=== PATIENT | female | born 1970 | race Caucasian/White ===

== ENCOUNTER 2022-11-05 19:34 | Emergency (ER) | payer OTHER, SELFPAY ==
[2022-11-05 19:35] VITALS: BP 124/88; PULSE 89; RESP 16; TEMP 36.6; O2SAT 97; BMI 40.7
--- NOTE | 2022-11-05 19:51 | EKG12_ITS ---
Test Reason : CP Blood Pressure : / mmHG Vent. Rate : 081 BPM Atrial Rate : 081 BPM P-R Int : 158 ms QRS Dur : 094 ms QT Int : 372 ms P-R-T Axes : 037 -35 038 degrees QTc Int : 432 ms Normal sinus rhythm Left axis deviation Moderate voltage criteria for LVH, may be normal variant ( R in aVL , Linwood product ) Septal infarct , age undetermined Abnormal ECG Confirmed by XANDER HERNANDEZ, SAHIL ([id number]), digital editor JAQUAN HAGAN ([id number]) on 11/07/2022 10:49:26 AM Referred By: PL Confirmed By:SAHIL TERRELL MD
--- NOTE | 2022-11-05 19:52 | EDS_ITS ---
HPI History of Present Illness Chief Complaint: Chest Pain Informant: patient and spouse/S.O. Narrative Narrative: Presents with concern regarding chest pain. Patient states that 1 week ago she started with decreased energy. She states she is sleeping a lot. This started last Monday. She then developed some nausea and sweats and fever over the next day or 2. She never vomited. No diarrhea. She still has her appetite. She is also had myalgias. She had some headaches but those are getting better. The last 2 days now she has been coughing but not having sputum production. She has soreness across her chest that is exacerbated with coughing. This has been constant for the last at least 24 hours if not longer. Its not pleuritic. There is no hemoptysis. She has no travel surgery immobilization personal or family history of DVT or PE. Patient states that she has had angina for years. This goes back to when she was about 32 years old. She had an episode of chest pain. She had a heart catheterization that showed no blockage and no stents have ever been placed. She states she has had angina since but she is not on any medicines for this. She does have a family history of heart disease. Her father had bypass surgery at about 52. She is a non-smoker. She is on medication for high blood pressure. She has never had diabetes. She may have had high cholesterol but is not on meds for that. [facility] Medical History Aortic stenosis Mitral valve prolapse Home Medications albuterol sulfate 90 mcg/actuation aerosol inhaler 1 inh inhalation Q6H PRN breathing 11/05/22 [History Last Taken Unknown] amlodipine 10 mg tablet 10 mg PO DAILY 11/05/22 [History Last Taken 11/04/22] diclofenac sodium 75 mg tablet,delayed release 75 mg PO BID 11/05/22 [History Last Taken Unknown] duloxetine 60 mg capsule,delayed release 90 mg PO DAILY 11/05/22 [History Last Taken 11/04/22] lisinopril 20 mg-hydrochlorothiazide 25 mg tablet 1 tab PO QHS 11/05/22 [History Last Taken 11/05/22] omeprazole 20 mg capsule,delayed release 20 mg PO DAILY 11/05/22 [History Last Taken Unknown] Allergy/AdvReac Type Severity Reaction Status Date / Time cat dander [cats] Allergy Anaphylaxis Verified 11/05/22 19:38 Social History Smoking Status: Never smoker ROS ROS ED Constitutional Constitutional ED: Reports chills, fever(s), subjective and sweats Eyes Eyes: Denies change in vision or diplopia ENT ENT ED: Reports rhinorrhea; Denies sore throat Cardiovascular Cardiovascular: Reports chest pain; Denies palpitations or racing heartbeat Respiratory/Chest Respiratory/Chest: Reports cough and dyspnea; Denies sputum Gastrointestinal Gastrointestinal: Reports nausea; Denies abdominal pain, diarrhea or vomiting Genitourinary Genitourinary ED: Denies dysuria Musculoskeletal Musculoskeletal: Reports myalgias Integumentary Denies rash Neurologic Neurologic: Reports headache(s); Denies paresthesias or weakness Psychiatric Psychiatric: Denies anxiety Endocrine Endocrinology: Denies polydipsia or polyuria Hematologic/Lymphatic Hematologic/Lymphatic: Denies easy bleeding, easy bruising or lymphadenopathy Allergic/Immunologic Allergic/Immunologic ED: Denies urticaria EXAM Physical Exam Const Vital Signs: 11/05/22 19:35 11/05/22 19:56 11/05/22 20:07 Temperature 97.8 F Temperature Source Temporal Pulse Rate 89 90 Respiratory Rate 16 18 Respiratory Effort Normal Blood Pressure 124/88 H Blood Pressure Mean 100 Pulse Ox 97 Oxygen Delivery Method Room Air 11/05/22 21:05 11/05/22 22:00 Temperature 98.8 F Temperature Source Oral Pulse Rate 82 77 Respiratory Rate 16 15 Respiratory Effort Blood Pressure 125/74 H 138/90 H Blood Pressure Mean 91 106 Pulse Ox 93 93 Oxygen Delivery Method Room Air Room Air Positive well nourished and well developed General Appearance ED: well developed and NAD; Negative for pallor HEENT Reports moist mucous membranes HEENT Narrative: Mucous membranes are still moist. No sinus tenderness. Eyes EOMs intact bilaterally General Eye ED: Negative for pale conjunctiva or scleral icterus Neck no lymphadenopathy and no JVD Neck Narrative: No JVD. Chest Wall inspection of chest normal and palpation of chest normal Chest Narrative: No notable chest tenderness Resp normal respiratory effort and clear to auscultation bilaterally Resp Narrative: Patient states she has heard intermittent wheezing but has no history of restrictive lung disease. I do not hear wheezing at this time. However, deep breaths do cause a cough on her. Cardio regular rate and no murmurs Rate: other Other Details: Heart is regular. She is not tachycardic. Peripheral pulses are normal and equal. No muffled heart tones. ; Negative for tachycardic GI normal to inspection, nondistended, normoactive bowel sounds and non-distended Back/Spine no CVA tenderness Extremity normal to inspection Extremity Narrative: No edema, cords, tenderness along deep venous system, distended veins or asymmetry. General Extremety ED: Negative for edema or tenderness General Extremity: Negative for edema Neuro oriented x3 Psych mental status grossly normal Skin no rashes or lesions noted, no wounds and skin turgor normal General Skin Exam: Negative for jaundice or pallor MDM MDM MDM Narrative Medical decision making narrative: My independent interpretation of her 2 view view chest x-ray shows no sign of infiltrate, pneumothorax, cardiomegaly or other acute process. Final reading by radiology also shows no acute radiographic abnormalities. CBC shows no acute process including normal white count. Electrolytes are normal. Despite more than a day of symptoms, her troponin is still quite low at 6. I do not think she needs a delta troponin. I checked with the patient again. She feels better with albuterol MDI. I talked to her about this. She does have this at home but does not have a spacer. I have talked with our respiratory therapist to her getting a spacer for her to use with the patient's own albuterol. She states she does not need another prescription. I do not think this patient requires antibiotics as there is no indication of bacterial infection. This is most likely viral and should resolve soon. However we did discuss reasons that would bring her back. I do not think her symptoms represent a PE. She has intermittent pain with coughing, she is not tachypneic tachycardic or hypoxic. She has no risk factor for PE. I do not think she needs CTA or D-dimer. Lab Data Attestation: I reviewed the patient's lab results. Labs: Laboratory Results - last 24 hr 11/05/22 11/05/22 19:50 19:50 WBC 5.8 RBC 4.69 Hgb 12.3 Hct 38.7 MCV 82.5 MCH 26.2 L MCHC 31.8 L RDW Std Deviation 41.6 RDW Coeff of Sylvia 13.9 Plt Count 261 MPV 8.8 Immature Gran % (Auto) 0.500 Neut % (Auto) 74.7 H Lymph % (Auto) 17.2 L Bullock % (Auto) 7.1 Eos % (Auto) 0.0 Baso % (Auto) 0.5 Absolute Neuts (auto) 4.3 Absolute Lymphs (auto) 1.00 Nucleated RBC % 0 Sodium 138 Potassium 3.5 Chloride 104 Carbon Dioxide 26.0 Anion Gap 8 BUN 13 Creatinine 0.95 Estim Creat Clear Calc 56.00 Est GFR (MDRD) Af Amer 79 Est GFR (MDRD) Non-Af 66 BUN/Creatinine Ratio 13.7 Glucose 108 H Calcium 9.3 Troponin I High Sens 6 Radiography Diagnostic Testing: Clinical Impression(s) from Imaging Studies Chest X-Ray 11/05/22 20:28 IMPRESSION: No acute radiographic abnormalities. Electronically Signed: Tyson Hernandez MD at 20:39 EST , EKG Initial EKG: Comments: My independent interpretation of the patient's EKG done for chest pain shows a normal sinus rhythm with overall rate of 81. Mild baseline variation but no sign of acute ST elevation or depression. Poor anterior R wave. Borderline LVH. CO interval, QRS duration and QTc are normal. I looked for but I am not able to find any prior EKGs on our system. Discharge Plan Triage Chief Complaint: Chest Pain ED Provider: Ra Dai Dx/Rx/DC Orders Clinical Impression: Viral URI with cough, Acute bronchospasm Instructions: ED URI, Viral, No Abx (Adult) Prescriptions: No Action amlodipine 10 mg tablet 10 mg PO DAILY omeprazole 20 mg Capsule,Delayed Release(Dr/Ec) 20 mg PO DAILY lisinopril-hydrochlorothiazide 20-25 mg tablet 1 tab PO QHS diclofenac sodium 75 mg tablet,delayed release (DR/EC) 75 mg PO BID Label Comments: TAKE 1 TABLET BY MOUTH TWICE A DAY FOR 30 DAYS albuterol sulfate 90 mcg/actuation Hfa Aerosol Inhaler 1 inh INHALATION Q6H PRN (Reason: breathing) duloxetine 60 mg capsule,delayed release(DR/EC) 90 mg PO DAILY Primary Care Provider: Rima Carey Referrals: Rima Carey MD [Primary Care Provider] - 3-5 Days Disposition Disposition: Home, Self Care
[2022-11-05 19:58] LABS: Absolute Neutrophil Count 4.3 X10^3/uL (2.0-7.7); Basophil# 0.03 X10^3/uL; Basophil% 0.5 % (0-1); Hematocrit 38.7 % (37-47); Hemoglobin 12.3 g/dL (12.0-15.0); Lymphocyte % 17.2 % (19-41); Mean Corp Hgb Conc 31.8 g/dL (32-36); Mean Corpuscular Hgb 26.2 pg (27.0-32.0); Mean Corpuscular Volume 82.5 fL (81-99); Mean Platelet Vol. 8.8 fl (6.2-12.0); Monocyte# 0.41 X10^3/uL; Monocyte% 7.1 % (0-10); NRBC Flagged by Analyzer 0 % (0-5); Neutrophil # 4.34 X10^3/uL (2.7-7.7); Neutrophil % 74.7 % (47-70); Platelet Count 261 K/mm3 (150-450); RBC Distribution Width CV 13.9 % (11.6-14.6); RBC Distribution Width SD 41.6 fl (35.1-43.9); Red Blood Count 4.69 M/mm3 (4.2-5.4); White Blood Count 5.8 K/mm3 (4.4-11.0)
[2022-11-05] MEDS: Ipratropium/Albuterol Sulfate 3 ML AMPUL.NEB INHALATION (20:00)
[2022-11-05 20:07] VITALS: PULSE 90; RESP 18
[2022-11-05 20:21] LABS: Anion Gap 8 (5-15); BUN 13 mg/dL (7-18); BUN/Creat Ratio 13.7 RATIO (10-20); Calcium,Total 9.3 mg/dL (8.5-10.1); Chloride 104 mmol/L (98-107); Creatinine, Serum 0.95 mg/dL (0.55-1.02); EST Glomerular Filtration Rate 66 mL/min (>60); Est Glom Filt Rate - Afr Amer 79 mL/min (>60); Glucose 108 mg/dL (74-106); Potassium 3.5 mmol/L (3.5-5.1); Sodium Level 138 mmol/L (136-145); Troponin-I HS 6 pg/mL (3.0-54.0)
--- NOTE | 2022-11-05 20:28 | RAD_ITS ---
INDICATION: cough EXAMINATION/TECHNIQUE: X-RAY - XR Chest 2 Views COMPARISON: None. FINDINGS: The lungs are clear. Tortuous and calcified thoracic aorta. The heart is not enlarged. No pleural effusion or pneumothorax. Degenerative changes of the thoracic spine. RAD/Chest PA and Lateral IMPRESSION: No acute radiographic abnormalities. Electronically Signed: Tyson Hernandez MD at 20:39 EST ,
[2022-11-05 21:05] VITALS: BP 125/74; PULSE 82; RESP 16; O2SAT 93
[2022-11-05 22:00] VITALS: BP 138/90; PULSE 77; RESP 15; TEMP 37.1; O2SAT 93
[2022-11-05 23:05] VITALS: BP 145/91; PULSE 79; RESP 17; O2SAT 95
== END 2022-11-05 23:06 | disposition home or self-care (01) ==
PROVIDERS: Emergency Provider Emergency Medicine; PCP Family Medicine; Visit Provider Emergency Medicine
DX: J06.9 Acute upper respiratory infection, unspecified (principal); R11.0 Nausea; R51.9 Headache, unspecified; J98.01 Acute bronchospasm; R07.9 Chest pain, unspecified; I10 Essential (primary) hypertension; Z79.899 Other long term (current) drug therapy
CPT/HCPCS: 71046; 80048; 84484; 85025; 87428; 93005; 94640; 99284; A4216